=== PATIENT | male | born 1950 | race Two or more races ===

== ENCOUNTER 2024-12-12 12:11 | Inpatient (IN) | payer OTHER ==
[2024-12-12] VITALS (8 sets, daily range): BP systolic 89–104; BP diastolic 55–63; PULSE 83–96; RESP 12–18; TEMP 98.1–100; O2SAT 96–97
[~2024-12-12] VITALS: Ht 170.2 cm; Wt 97.2 kg
--- NOTE | 2024-12-12 13:01 | ED.PDOC ---
History of Present Illness HPI Comments 74-year-old male came to the ER complaining of having darker stools this morning. He was recently discharged from hospital in [place] for similar symptom. Along with dark colored stool she has been having nausea but no vomiting. His blood pressure on arrival 89/54. History of gastric ulcer with hypotension for which she does take lisinopril aspirin. Denies any other symptoms Chief Complaint: Low Blood Pressure Time Seen by MD: 12:18 Reviewed Notes: Nurses Notes, Medications, Allergies Allergies: Coded Allergies: NO KNOWN ALLERGIES (Unverified , 12/12/24) Information Source: Patient, Emergency Med Personnel Mode of Arrival: EMS Severity: Moderate Timing: Days Duration: Since onset Past Medical History PAST MEDICAL HISTORY: Denies Surgical History: Denies all surgeries Social History Smoker: Non-Smoker Alcohol: Denies ETOH Use Drugs: Denies Drug Use Constitutional: denies: chills, diaphoresis, fatigue, fever, malaise, sweats, weakness, others EENTM: denies: blurred vision, double vision, ear bleeding, ear discharge, ear drainage, ear pain, ear ringing, eye pain, eye redness, hearing loss, mouth pain, mouth swelling, nasal discharge, nose bleeding, nose congestion, nose maliha n, photophobia, tearing, throat pain, throat swelling, voice changes, others Respiratory: denies: cough, hemoptysis, orthopnea, SOB at rest, shortness of breath, SOB with excertion, stridor, wheezing, others Cardiovascular: denies: chest pain, dizzy spells, diaphoresis, Dyspnea on exertion, edema, irregular heart beat, left arm pain, lightheadedness, palpitations, PND, syncope, others Gastrointestinal: reports: melena; denies: abdomen distended, abdominal pain, blood streaked bowels, constipated, diarrhea, dysphagia, difficulty swallowing, hematemesis, nausea, poor appetite, poor fluid intake, rectal bleeding, rectal pain, vomiting, others Genitourinary: denies: burning, dysuria, flank pain, frequency, hematuria, incontinence, penile discharge, penile sore, pain, testicle pain, testicle swelling, urgency, others Neurological: denies: dizziness, fainting, headache, left sided numbness, left sided weakness, numbness, paresthesia, pre-existing deficit, right sided numbness, right sided weakness, seizure, speech problems, tingling, tremors, weakness, others Musculoskeletal: denies: back pain, gout, joint pain, joint swelling, muscle pain, muscle stiffness, neck pain, others Integumetry: denies: bruises, change in color, change in hair/nails, dryness, laceration, lesions, lumps, rash, wounds, others Allergic/Immunocompromised: denies: Difficulty Healing, Frequent Infections, Hives, Itching, others Hematologic/Lymphatic: denies: anemia, blood clots, easy bleeding, easy bruising, swollen glands, others Endocrine: denies: excessive hunger, excessive sweating, excessive thirst, excessive urination, flushing, intolerance to cold, intolerance to heat, unexplained weight gain, unexplained weight loss, others Psychiatric: denies: anxiety, bipolar disorder, depression, hopeless, panic disorder, schizophrenia, sleepless, suicidal, others Physical Exam General Appearance: Moderate Distress HEENT: Normal ENT Inspection, Pharynx Normal, TMs Normal Neck: Full Range of Motion, Non-Tender, Normal, Normal Inspection Respiratory: Chest Non-Tender, Lungs Clear, No Accessory Muscle Use, No Respiratory Distress, Normal Breath Sounds Cardiovascular: No Edema, No JVD, No Murmur, No Gallop, Normal Peripheral Pulses, Regular Rate/Rhythm Breast Exam: Deferred Gastrointestinal: No Organomegaly, Non Tender, No Pulsatile Mass, Normal Bowel Sounds, Soft Genitalia: Deferred Pelvic: Deferred Rectal: Deferred Extremities: No calf tenderness, Normal inspection, Normal range of motion Musculoskeletal : Apperance: Normal Neurologic: Alert Cerebellar Function: NOT DONE Reflexes: NOT DONE Skin: Pallor Peripheral Pulses: 3+ Radial (R), 3+ Radial (L) Lymphatic: No Adenopathy Was a procedure done? Was a procedure done?: No EKG EKG : Cardiac Rhythm: NSR Differential Dx Considerations may include: GI bleed Electrolyte imbalance X-Ray, Labs, Meds, VS Vital Signs Date Time Temp Pulse Resp B/P (MAP) Pulse Ox O2 Delivery O2 Flow Rate FiO2 12/12/24 12:55 96 12 96 Room Air* 0 21 12/12/24 12:54 98.3 96 12 98/58 (71) 96 98.3 12/12/24 12:30 98.4 87 18 89/59 (69) 97 98.4 12/12/24 12:24 100 Lab Test 12/12/24 14:55 12/12/24 13:24 Range/Units Urine Color Pending Urine Clarity Pending Urine pH Pending Urine Specific [place] Pending Urine Protein Pending Urine Ketones Pending Urine Blood Pending Urine Nitrite Pending Urine Bilirubin Pending Urine Urobilinogen Pending Urine Leukocyte Esterase Pending Urine RBC Pending Urine Microscopic WBC Pending Urine Squamous Epithelial Cells Pending Urine Bacteria Pending Urine Glucose Pending White Blood Count 12.9 H 4.4-10.8 10^3/uL Red Blood Count 2.02 L 4.5-5.90 10^6/uL Hemoglobin 6.3 *L 13.5-17.5 g/dL Hematocrit 18.2 L 41.0-53.0 % Mean Corpuscular Volume 90.3 80.0-100.0 fL Mean Corpuscular Hemoglobin 31.4 28.0-32.0 pg Mean Corpuscular Hemoglobin Concent 34.8 32.0-36.0 g/dL Red Cell Distribution Width 14.5 H 11.8-14.3 % Platelet Count 146 140-450 10^3/uL Mean Platelet Volume 9.3 6.9-10.8 fL Neutrophils (%) (Auto) 81.0 H 37.0-80.0 % Lymphocytes (%) (Auto) 13.7 10.0-50.0 % Monocytes (%) (Auto) 5.0 0.0-12.0 % Eosinophils (%) (Auto) 0.1 0.0-7.0 % Basophils (%) (Auto) 0.2 0.0-2.0 % Neutrophils # (Auto) 10.5 H 1.6-8.6 10 ^3/uL Lymphocytes # (Auto) 1.8 0.4-5.4 10 ^3/uL Monocytes # (Auto) 0.6 0-1.3 10 ^3/uL Eosinophils # (Auto) 0 0-0.8 10 ^3/uL Basophils # (Auto) 0 0-0.2 10 ^3/uL Nucleated Red Blood Cells 0.8 % Prothrombin Time 13.1 H 9.3-11.8 sec Prothrombin Time INR 1.26 H 0.9-1.15 Activated Partial Thromboplast Time 23.6 L 24.5-34.5 SEC Sodium Level 137 136-145 mmol/L Potassium Level 4.0 3.5-5.1 mmol/L Chloride Level 107 98-107 mmol/L Carbon Dioxide Level 20 20-31 mmol/L Anion Gap 10 5-15 Blood Urea Nitrogen 29 H 9-23 mg/dL Creatinine 0.91 0.700-1.30 mg/dL Glomerular Filtration Rate Calc 88 >90 mL/min BUN/Creatinine Ratio 31.9 H 10.0-20.0 Serum Glucose 203 H 74-106 mg/dL Calcium Level 7.6 L 8.7-10.4 mg/dL Troponin I High Sensitivity 4 </=54 ng/L Current Medications Medications (Trade) Dose Ordered Sig/Sharri Route Start Time Stop Time Status Last Admin Sodium Chloride 1,000 ml @ 1,000 mls/hr Q1H ONCE IV 12/12/24 13:00 12/12/24 13:59 DC 12/12/24 13:07 Sodium Chloride 1,000 ml @ 150 mls/hr Q6H40M ONCE IV 12/12/24 13:00 12/12/24 19:39 12/12/24 14:00 Patient alert. Complaining of GI bleed. Blood pressure on the low side. Establish intravenous access. Was given fluids. Recently discharged from [facility] for a GI workup. Continues to have melena stools. He is slightly pale. Abdomen is soft. Reviewed his history. GI consultation. Explained to the patient. Continue monitoring. [place] [id number] Ph: [phone] DIAGNOSTIC IMAGING Diagnostic Imaging Report : [id number] Signed PATIENT: LASHAWN ZULUAGA ACCT: [id number] UNIT: [id number] : 1950 LOC: ER ROOM / BED: / AGE / SEX: 74 / M ADM STATUS: REG ER SERVICE 1255 ORDERING PHYSICIAN: DEEP CHANDLER MD PROCEDURE(s): CXRP - CHEST PORTABLE REASON: sob ORDER NUMBER(s): [id number], ACCESSION NUMBER(s): [id number] EXAM: XY CHEST PORTABLE TECHNIQUE: Single frontal chest radiograph CLINICAL HISTORY: sob COMPARISON: None Findings/Impression: Frontal chest radiograph demonstrates no acute osseous or superficial soft tissue abnormalities. The trachea is midline. The cardiac silhouette and mediastinum are within normal limits. No pneumothorax, pleural effusions, or consolidations. ATED BY: JANNET CHRISTINE DO DICTATED DATE/TIME: 12/12/241341 SIGNED BY: JANNET CHRISTINE DO SIGNED DATE/TIME: 12/12/241341 CC: [place] [id number] Ph: [phone] DIAGNOSTIC IMAGING Diagnostic Imaging Report : [id number] Signed PATIENT: LASHAWN ZULUAGA ACCT: [id number] UNIT: [id number] : 1950 LOC: ER ROOM / BED: / AGE / SEX: 74 / M ADM STATUS: REG ER SERVICE 54 ORDERING PHYSICIAN: DEEP CHANDLER MD PROCEDURE(s): ABPL - CT AB PEL WO CON-NO ORAL OR IV REASON: gible ORDER NUMBER(s): [id number], ACCESSION NUMBER(s): [id number] Exam: CT CT AB PEL WO CON-NO ORAL OR IV History: gibleed Comparison Study: None TECHNIQUE: Multidetector CT of the abdomen and pelvis was performed from lung bases to pubic symphysis. Imaging was performed without IV contrast. Axial, coronal, and sagittal multiplanar reformats were obtained from the axial data set by the technologist. RADIATION DOSE: DLP 811.56 mGy.cm; CTDI vol 14.17 mGy. Findings: Lungs: The lung bases are clear. Heart: No cardiomegaly or pericardial effusion. Liver: Unremarkable. Gallbladder: Unremarkable. Spleen: Unremarkable Pancreas: Unremarkable Adrenals: Unremarkable Kidneys: Unremarkable GI tract: Unremarkable. No definite gastrointestinal hemorrhage. : 1.5 cm hyperdense nodule in the base of the prostate. Vasculature: Unremarkable Lymphadenopathy: Absent Peritoneum: No ascites Musculoskeletal: Unremarkable Soft tissues: Unremarkable Impression: 1. No acute abdominopelvic abnormalities. 2. No definite gastrointestinal hemorrhage. Consider further evaluation with a nuclear medicine GI bleeding scan as clinically indicated. 3. 1.5 cm hypodense nodule in the base of the prostate, nonspecific. Consider ultrasound for further evaluation as indicated. ATED BY: JANNET CHRISTINE DO DICTATED DATE/TIME: 12/12/24 1354 SIGNED BY: JANNET CHRISTINE DO SIGNED DATE/TIME: 12/12/24 1354 CC: Time of 1ST Reevaluation: 12:59 Reevaluation 1ST: Unchanged Patient Education/Counseling: Diagnosis, Treatment, Prognosis Family Education/Counseling: No Family Present Departure 1 Departure Time of Disposition: 13:00 Impression: Primary Impression: GI bleed Qualified Codes: K92.2 - Gastrointestinal hemorrhage, unspecified Additional Impression: Severe anemia Disposition: ADMITTED INPATIENT Admit to: Med Surg Condition: Guarded Critical Care Note Critical Care Time?: Yes (90 min-critical care time only) Critical care comment: Hypotensive continue fluids Stability Stability form required: No Heart Score Heart Score: Heart Score Response (Comments) Value History Slightly Suspicious 0 EKG Normal 0 Age >65 2 Risk Factors >3 or Hx ASHD 2 Troponin Normal limit 0 Total 4 I personally scribed for DEEP CHANDLER MD ([email or web address]) on 12/12/24 at 15:17. Electronically submitted by Jason Berrios ([email or web address]). DEEP CHANDLER MD December 12, 2024 13:01
[2024-12-12] MEDS: SODIUM CHLORIDE 0.9% 1,000 ML IV ONE ×2 (13:07→14:00)
[2024-12-12 13:43] LABS: Basophils # (auto) 0 10 ^3/uL (0-0.2); Basophils % (auto) 0.2 % (0.0-2.0); Chloride 107 mmol/L (98-107); Eosinophils # (auto) 0 10 ^3/uL (0-0.8); Eosinophils % (auto) 0.1 % (0.0-7.0); Hematocrit 18.2 % (41.0-53.0); Lymphocytes # (auto) 1.8 10 ^3/uL (0.4-5.4); Lymphocytes % (auto) 13.7 % (10.0-50.0); Mean Corpuscular Hemoglobin 31.4 pg (28.0-32.0); Mean Corpuscular Hgb Conc. 34.8 g/dL (32.0-36.0); Mean Corpuscular Volume 90.3 fL (80.0-100.0); Monocytes # (auto) 0.6 10 ^3/uL (0-1.3); Neutrophils # (auto) 10.5 10 ^3/uL (1.6-8.6); Nucleated Red Blood Cells % 0.8 %; Platelet Count (auto) 146 10^3/uL (140-450); Red Blood Cells 2.02 10^6/uL (4.5-5.90); Red Cell Distribution Width 14.5 % (11.8-14.3); Sodium 137 mmol/L (136-145); White Blood Cell 12.9 10^3/uL (4.4-10.8)
[2024-12-12 13:44] LABS: Anion Gap 10 (5-15); Carbon Dioxide 20 mmol/L (20-31); Hemoglobin 6.3 g/dL (13.5-17.5)
--- NOTE | 2024-12-12 13:44 | DVH ---
EXAM: XY CHEST PORTABLE TECHNIQUE: Single frontal chest radiograph CLINICAL HISTORY: sob COMPARISON: None Findings/Impression: Frontal chest radiograph demonstrates no acute osseous or superficial soft tissue abnormalities. The trachea is midline. The cardiac silhouette and mediastinum are within normal limits. No pneumothorax, pleural effusions, or consolidations.
[2024-12-12 13:47] LABS: Calcium 7.6 mg/dL (8.7-10.4)
[2024-12-12 13:50] LABS: BUN/Creatinine Ratio 31.9 (10.0-20.0)
[2024-12-12 13:53] LABS: INR 1.26 (0.9-1.15); Partial Thromboplastin Time 23.6 SEC (24.5-34.5); Prothrombin Time 13.1 sec (9.3-11.8)
[2024-12-12 13:54] LABS: Blood Urea Nitrogen 29 mg/dL (9-23); Glucose 203 mg/dL (74-106)
--- NOTE | 2024-12-12 13:56 | DVH ---
Exam: CT CT AB PEL WO CON-NO ORAL OR IV History: gibleed Comparison Study: None TECHNIQUE: Multidetector CT of the abdomen and pelvis was performed from lung bases to pubic symphysi s. Imaging was performed without IV contrast. Axial, coronal, and sagittal multiplanar reformats were obtained from the axial data set by the technologist. RADIATION DOSE: DLP 811.56 mGy.cm; CTDI vol 14.17 mGy. Findings: Lungs: The lung bases are clear. Heart: No cardiomegaly or pericardial effusion. Liver: Unremarkable. Gallbladder: Unremarkable. Spleen: Unremarkable Pancreas: Unremarkable Adrenals: Unremarkable Kidneys: Unremarkable GI tract: Unremarkable. No definite gastrointestinal hemorrhage. : 1.5 cm hyperdense nodule in the base of the prostate. Vasculature: Unremarkable Lymphadenopathy: Absent Peritoneum: No ascites Musculoskeletal: Unremarkable Soft tissues: Unremarkable Impression: 1. No acute abdominopelvic abnormalities. 2. No definite gastrointestinal hemorrhage. Consider further evaluation with a nuclear medicine GI bl eeding scan as clinically indicated. 3. 1.5 cm hypodense nodule in the base of the prostate, nonspecific. Consider ultrasound for further evaluation as indicated.
--- NOTE | 2024-12-12 14:20 | ECG ---
[facility] Test Date: 2024-12-12 Test Time: 12:24:05 Pat Name: LASHAWN ZULUAGA Department: ED Room: 0281 Gender: M [employer] Dis[employer]: ER : 1950 Requested By: DEEP CHANDLER Order Number: [id number] Reading MD: Kyaw Davis Measurements Intervals [place] Rate: 100 P: 49 MA: 189 QRS: -66 QRSD: 92 T: 36 QT: 364 QTc: 470 Interpretive Statements Sinus tachycardia Left anterior fascicular block Consider anterior infarct Electronically Signed On 12-15-2024 12:43:31 PDT by Kyaw Davis Please click the below link to view image of tracing.
[2024-12-12 15:07] LABS: Urine Bacteria None Seen /hpf (None Seen)
[2024-12-12 15:25] LABS: Urine Blood Negative /uL (Negative); Urine Clarity Clear (Clear); Urine Color Light-Yellow (Yellow); Urine Mucus FEW (None Seen); Urine Protein, UAD Negative (Negative); Urine Specific Gravity 1.021 (1.001-1.035); Urine Squamous Epithelial Cell None Seen /hpf (<5); Urine Urobilinogen Normal (Negative); Urine WBC < 1 /HPF (0-3)
--- NOTE | 2024-12-12 16:32 | DVHHP2 ---
History of Present Illness Reason for Visit: Dark stools History of Present Illness This 74 year-old mainly Icelandic-speaking male patient presents to the emergency department with a chief complaint of dark stools. The patient reports symptoms started with dark-colored stools, nausea, vomiting, hematemesis, and melena last week for which prompted the patient to go to [facility]. The patient states that he was admitted overnight and was transfused with 1 unit PRBC and status post endoscopy for which they found gastric ulcer. He was discharged yesterday with a hemoglobin of greater than seven and was advised to follow-up with PCP. The patient reports continued to have dark stools and weakness for which prompted him to visit the emergency department again. In the emergency department, the patient is found to have severe anemia with a hemoglobin of 6.3 and hypotension. The patient denies fever, syncope, chest pain, chest palpitations, shortness of breath, or abdominal pain. Past Medical History As stated in HPI Past Surgical History Status post endoscopy Family History Reviewed, non-contributory to the management of this case. Past Social History The patient lives at home, denies smoking, alcohol or illicit drugs abuse. Review of Systems Constitutional: Yes: Weakness, Malaise; No: Fever, Chills, Sweats, Other Eyes: No: Pain, Vision change, Conjunctivae inflammation, Eyelid inflammation, Other, Redness ENT: No: Ear pain, Ear discharge, Nose pain, Nose discharge, Nose congestion, Mouth pain, Mouth swelling, Throat pain, Throat swelling, Other Respiratory: No: Cough, Dry, Shortness of breath, SOB with excertion, Wheezing, Hemoptysis, Pleuritic Pain, Sputum, Wheezing, Other Cardiovascular: No: Chest Pain, Palpitations, Orthopnea, Paroxysmal Noc. Dyspnea, Edema, Lt Headedness, Other Gastrointestinal: Nausea, Vomiting, Melena, Other (Blood in stools); No: Abdominal Pain, Diarrhea, Constipation, Hematochezia Genitourinary: No Dysuria, No Frequency, No Incontinence, No Hematuria, No R etention, No Other Musculoskeletal: No: other, neck pain, shoulder pain, arm pain, back pain, hand pain, leg pain, foot pain Skin: No: Rash, Lesions, Jaundice, Bruising, Other Neurological: No: Weakness, Numbness, Incoordination, Change in speech, Confusion, Seizures, Other Allergies: Coded Allergies: NO KNOWN ALLERGIES (Unverified , 12/12/24) Exam Vital Signs Vital Signs Date Time Temp Pulse Resp B/P (MAP) Pulse Ox O2 Delivery O2 Flow Rate FiO2 12/12/24 16:00 87 13 126/48 (74) 95 12/12/24 12:55 Room Air* 0 21 12/12/24 12:54 98.3 98.3 General Appearance: Alert, Oriented X3, Cooperative, mild distress HEENT: Atraumatic, PERRLA, Mucous membr. moist/pink Respiratory: Clear to auscultation, Normal air movement Cardiovascular: Regular rate, Normal S1, Normal S2 Abdominal: Normal bowel sounds, Soft, No tenderness Extremities: No clubbing, No cyanosis, No edema Skin: No rashes, No breakdown Neuro: Normal speech, Normal tone Labs/Xrays Labs Test 12/12/24 14:55 12/12/24 13:24 Range/Units Urine Color Light-yellow Yellow Urine Clarity Clear Clear Urine pH 5.0 5.0-9.0 Urine Specific [place] 1.021 1.001-1.035 Urine Protein Negative Negative Urine Ketones Trace Negative Urine Blood Negative Negative /uL Urine Nitrite Negative Negative Urine Bilirubin Negative Negative Urine Urobilinogen Normal Negative mg/dL Urine Leukocyte Esterase Negative Negative /uL Urine RBC 1 0 - 3 /hpf Urine Microscopic WBC < 1 0-3 /HPF Urine Squamous Epithelial Cells None seen <5 /hpf Urine Bacteria None seen None Seen /hpf Urine Mucus Few None Seen Urine Glucose Trace Normal mg/dL White Blood Count 12.9 H 4.4-10.8 10^3/uL Red Blood Count 2.02 L 4.5-5.90 10^6/uL Hemoglobin 6.3 *L 13.5-17.5 g/dL Hematocrit 18.2 L 41.0-53.0 % Mean Corpuscular Volume 90.3 80.0-100.0 fL Mean Corpuscular Hemoglobin 31.4 28.0-32.0 pg Mean Corpuscular Hemoglobin Concent 34.8 32.0-36.0 g/dL Red Cell Distribution Width 14.5 H 11.8-14.3 % Platelet Count 146 140-450 10^3/uL Mean Platelet Volume 9.3 6.9-10.8 fL Neutrophils (%) (Auto) 81.0 H 37.0-80.0 % Lymphocytes (%) (Auto) 13.7 10.0-50.0 % Monocytes (%) (Auto) 5.0 0.0-12.0 % Eosinophils (%) (Auto) 0.1 0.0-7.0 % Basophils (%) (Auto) 0.2 0.0-2.0 % Neutrophils # (Auto) 10.5 H 1.6-8.6 10 ^3/uL Lymphocytes # (Auto) 1.8 0.4-5.4 10 ^3/uL Monocytes # (Auto) 0.6 0-1.3 10 ^3/uL Eosinophils # (Auto) 0 0-0.8 10 ^3/uL Basophils # (Auto) 0 0-0.2 10 ^3/uL Nucleated Red Blood Cells 0.8 % Prothrombin Time 13.1 H 9.3-11.8 sec Prothrombin Time INR 1.26 H 0.9-1.15 Activated Partial Thromboplast Time 23.6 L 24.5-34.5 SEC Sodium Level 137 136-145 mmol/L Potassium Level 4.0 3.5-5.1 mmol/L Chloride Level 107 98-107 mmol/L Carbon Dioxide Level 20 20-31 mmol/L Anion Gap 10 5-15 Blood Urea Nitrogen 29 H 9-23 mg/dL Creatinine 0.91 0.700-1.30 mg/dL Glomerular Filtration Rate Calc 88 >90 mL/min BUN/Creatinine Ratio 31.9 H 10.0-20.0 Serum Glucose 203 H 74-106 mg/dL Calcium Level 7.6 L 8.7-10.4 mg/dL Troponin I High Sensitivity 4 </=54 ng/L PROCEDURE(s): ABPL - CT AB PEL WO CON-NO ORAL OR IV REASON: gibleed ORDER NUMBER(s): [id number], ACCESSION NUMBER(s): [id number] Exam: CT CT AB PEL WO CON-NO ORAL OR IV History: gibleed Comparison Study: None TECHNIQUE: Multidetector CT of the abdomen and pelvis was performed from lung bases to pubic symphysis. Imaging was performed without IV contrast. Axial, coronal, and sagittal multiplanar reformats were obtained from the axial data set by the technologist. RADIATION DOSE: DLP 811.56 mGy.cm; CTDI vol 14.17 mGy. Findings: Lungs: The lung bases are clear. Heart: No cardiomegaly or pericardial effusion. Liver: Unremarkable. Gallbladder: Unremarkable. Spleen: Unremarkable Pancreas: Unremarkable Adrenals: Unremarkable Kidneys: Unremarkable GI tract: Unremarkable. No definite gastrointestinal hemorrhage. : 1.5 cm hyperdense nodule in the base of the prostate. Vasculature: Unremarkable Lymphadenopathy: Absent Peritoneum: No ascites Musculoskeletal: Unremarkable Soft tissues: Unremarkable Impression: 1. No acute abdominopelvic abnormalities. 2. No definite gastrointestinal hemorrhage. Consider further evaluation with a nuclear medicine GI bleeding scan as clinically indicated. 3. 1.5 cm hypodense nodule in the base of the prostate, nonspecific. Consider ultrasound for further evaluation as indicated. Assessment/Plan Assessment/Plan # Severe anemia to Rule out GI bleed # hx of gastric ulcer s/p endoscopy # hx of GI bleed s/p blood transfusion # leukocytosis Admit to medical unit 2 units PRBC to be transfused Monitor H&H q.6 hours transfuse as needed GI consult Protonix b.i.d. Carafate Monitor for bleeding FOBT Iron panel Empiric antibiotic Blood culture # hypertension, now hypotension Monitor Soft IV fluid # prostate nodule 1.5cm, ?incidental findings psa consider Ultrasound of the prostate and urology consults # prediabetes # hyperglycemia Check A1c DVT prophylaxis with SCD Medical plan discussed with patient and daughter at bedside Plan discussed with: Patient, Daughter My Orders Orders - DELLA SUGGS AGRICULTURAL EXTENSION EDUCATOR Procedure Category Date Status Time Pulse Ox Cont Per Day RT 12/12/24 Verified 16:23 Vital Signs DAVID 12/12/24 Verified 16:23 Administer Blood DAVID 12/12/24 Verified Products 16:23 Iron Panel LAB 12/12/24 Verified 16:23 Reticulocyte Count LAB 12/12/24 Verified 16:23 Ferritin LAB 12/12/24 Verified 16:23 Lactate Dehydrogenase LAB 12/12/24 Verified 16:23 Vitamin B12 LAB 12/12/24 Verified 16:23 Folate (Folic Acid) LAB 12/12/24 Verified 16:23 Hemoglobin A1c LAB 12/12/24 Verified 16:23 Pantoprazole PHA 12/12/24 Verified (Protonix) 22:00 Pantoprazole PHA 12/12/24 Verified (Protonix) 16:30 Stool Occult Blood LAB 12/12/24 Verified 16:23 Sequential DAVID 12/12/24 Verified Compression Device 16:23 Blood Culture ZHAO 5/11/25 Verified 16:23 Urinalysis LAB 12/12/24 Verified 16:23 Ceftriaxone Ivpb PHA 12/13/24 Verified Rocephin 09:00 Metronidazole Ivpb PHA 12/12/24 Verified Flagyl 22:00 Metronidazole Ivpb PHA 12/12/24 Verified Flagyl 16:30 Sucralfate Susp PHA 12/12/24 Verified (Carafate Susp) 17:00 Hemoglobin & LAB 12/13/24 Verified Hematocrit 00:00 Hemoglobin & LAB 12/13/24 Verified Hematocrit 06:00 Hemoglobin & LAB 12/13/24 Verified Hematocrit 12:00 Hemoglobin & LAB 12/13/24 Verified Hematocrit 18:00 Date of Service: December 12, 2024 Billing Provider: DELLA SUGGS Common Visit Codes: 49529-[id number] INP/OBS CARE (HIGH) Consultation Codes: [id number] CONSULT <45MIN DELLA SUGGS December 12, 2024 16:32
[2024-12-12] MEDS ORDERED: ONDANSETRON HCL 4 MG/2 ML VIAL IV PRN (16:45)
[2024-12-12] MEDS: SODIUM CHLORIDE 0.9% 1,000 ML IV SCH (17:05)
[2024-12-12 17:13] LABS: % Iron Saturation 39.7 % (20-55)
[2024-12-12] MEDS: metroNIDAZOLE 500MG/100ML 100 ML IV ONE (17:30)
[2024-12-12 17:36] LABS: Ferritin 159.6 ng/mL (22-322)
[2024-12-12] MEDS: PANTOPRAZOLE 40 MG/10 ML VIAL INJ IV ONE (18:22)
[2024-12-12] MEDS: SUCRALFATE 1 GM/10 ML ORAL SUSP PO SCH (18:22)
[2024-12-12] MEDS ORDERED: LISI30TA8 PO (21:21)
[2024-12-12] MEDS ORDERED: PANT40T PO (21:21)
[2024-12-12] MEDS: metroNIDAZOLE 500MG/100ML 100 ML IV SCH (22:33)
[2024-12-12] MEDS: PANTOPRAZOLE 40 MG/10 ML VIAL INJ IV SCH (22:33)
[2024-12-13] VITALS (9 sets, daily range): BP systolic 105–123; BP diastolic 57–68; PULSE 65–82; RESP 17–18; TEMP 97.2–99.7; O2SAT 93–97
[2024-12-13 00:35] LABS: Hematocrit 23.2 % (41.0-53.0); Hemoglobin 8.3 g/dL (13.5-17.5)
[2024-12-13 07:06] LABS: Basophils # (auto) 0 10 ^3/uL (0-0.2); Eosinophils # (auto) 0.1 10 ^3/uL (0-0.8); Hemoglobin 8.2 g/dL (13.5-17.5)
[2024-12-13 07:13] LABS: Alanine Aminotransferase 20 U/L (7-40); Anion Gap 7 (5-15); Aspartate Aminotransferase 17 U/L (13-40); BUN/Creatinine Ratio 21.6 (10.0-20.0); Basophils % (auto) 0.4 % (0.0-2.0); Blood Urea Nitrogen 22 mg/dL (9-23); Carbon Dioxide 24 mmol/L (20-31); Eosinophils % (auto) 0.7 % (0.0-7.0); Hematocrit 22.6 % (41.0-53.0); Lymphocytes # (auto) 2.4 10 ^3/uL (0.4-5.4); Lymphocytes % (auto) 23.8 % (10.0-50.0); Mean Corpuscular Hemoglobin 32.7 pg (28.0-32.0); Mean Corpuscular Hgb Conc. 36.4 g/dL (32.0-36.0); Monocytes # (auto) 0.7 10 ^3/uL (0-1.3); Monocytes % (auto) 6.8 % (0.0-12.0); Neutrophils # (auto) 6.8 10 ^3/uL (1.6-8.6); Neutrophils % (auto) 68.3 % (37.0-80.0); Platelet Count (auto) 107 10^3/uL (140-450); Potassium 4.1 mmol/L (3.5-5.1); Red Blood Cells 2.51 10^6/uL (4.5-5.90); Red Cell Distribution Width 14.5 % (11.8-14.3); Sodium 140 mmol/L (136-145)
[2024-12-13 07:15] LABS: Albumin 2.9 g/dL (3.2-4.8); Alkaline Phosphatase 34 U/L (46-116); Bilirubin, Total 1.8 mg/dL (0.2-1.0); Calcium 8.4 mg/dL (8.7-10.4); Chloride 109 mmol/L (98-107); Glucose 131 mg/dL (74-106); Total Protein 4.3 g/dL (5.7-8.2)
[2024-12-13] MEDS: cefTRIAXone 1GM/50ML D5W 50 ML IV SCH (09:50)
[2024-12-13 11:05] LABS: Folate (Folic Acid) 12.98 ng/mL (>5.38)
[2024-12-13 11:06] LABS: Hemoglobin 8.4 g/dL (13.5-17.5)
[2024-12-13 11:08] LABS: Hematocrit 23.3 % (41.0-53.0)
--- NOTE | 2024-12-13 13:03 | DVHINCON2 ---
GI Consult Consult Note GI consult note Date of Consultation: 12/13/2024 Chief Complaint: GI bleed Referring Physician: Dr. Morrow H&P: 74-year-old male presented to ER with black stool Patient had similar episode last week, admitted to [facility], status post 1 unit PRBC transfusion, status post EGD diagnosed with PUD per patient, after being discharged return to hospital with melena again. Patient admits to history of GERD symptoms No abdominal pain. No nausea or vomiting. No red blood in stool. Denies hematemesis. Denies alcohol use. No NSAIDs. Admits to weight loss of 17 lb in six months after being diagnosed as prediabetic. Status post colonoscopy 5-6 years ago WNL per patient. No blood thinners. Patient admits to having abdominal surgery for stomach ulcers 40 years ago Past Medical History: Denies Past Surgical History: Abdominal surgery for stomach ulcers 40 years ago Social History: NO smoking, drinking ETOH and use of illegal drugs. Family History: Noncontributory Review of Systems: Constitutional: no fever, chill, weight loss HEENT: no eye pain, no hearing loss, no oral lesion, no scleral icterus Heart: no chest pain, no chest pressure Lung: no cough, no dyspnea with exertion Abdomen: see HPI Physical exam: General: NAD, AAOX3 Chest: lung velasquez clear to auscultation Heart: RRR, no murmur Abdomen: non-distended, no tenderness to palpation, +BS Labs:Labs Test 12/12/24 14:55 12/12/24 13:24 Range/Units Urine Color Light-yellow Yellow Urine Clarity Clear Clear Urine pH 5.0 5.0-9.0 Urine Specific [place] 1.021 1.001-1.035 Urine Protein Negative Negative Urine Ketones Trace Negative Urine Blood Negative Negative /uL Urine Nitrite Negative Negative Urine Bilirubin Negative Negative Urine Urobilinogen Normal Negative mg/dL Urine Leukocyte Esterase Negative Negative /uL Urine RBC 1 0 - 3 /hpf Urine Microscopic WBC < 1 0-3 /HPF Urine Squamous Epithelial Cells None seen <5 /hpf Urine Bacteria None seen None Seen /hpf Urine Mucus Few None Seen Urine Glucose Trace Normal mg/dL White Blood Count 12.9 H 4.4-10.8 10^3/uL Red Blood Count 2.02 L 4.5-5.90 10^6/uL Hemoglobin 6.3 *L 13.5-17.5 g/dL Hematocrit 18.2 L 41.0-53.0 % Mean Corpuscular Volume 90.3 80.0-100.0 fL Mean Corpuscular Hemoglobin 31.4 28.0-32.0 pg Mean Corpuscular Hemoglobin Concent 34.8 32.0-36.0 g/dL Red Cell Distribution Width 14.5 H 11.8-14.3 % Platelet Count 146 140-450 10^3/uL Mean Platelet Volume 9.3 6.9-10.8 fL Neutrophils (%) (Auto) 81.0 H 37.0-80.0 % Lymphocytes (%) (Auto) 13.7 10.0-50.0 % Monocytes (%) (Auto) 5.0 0.0-12.0 % Eosinophils (%) (Auto) 0.1 0.0-7.0 % Basophils (%) (Auto) 0.2 0.0-2.0 % Neutrophils # (Auto) 10.5 H 1.6-8.6 10 ^3/uL Lymphocytes # (Auto) 1.8 0.4-5.4 10 ^3/uL Monocytes # (Auto) 0.6 0-1.3 10 ^3/uL Eosinophils # (Auto) 0 0-0.8 10 ^3/uL Basophils # (Auto) 0 0-0.2 10 ^3/uL Nucleated Red Blood Cells 0.8 % Prothrombin Time 13.1 H 9.3-11.8 sec Prothrombin Time INR 1.26 H 0.9-1.15 Activated Partial Thromboplast Time 23.6 L 24.5-34.5 SEC Sodium Level 137 136-145 mmol/L Potassium Level 4.0 3.5-5.1 mmol/L Chloride Level 107 98-107 mmol/L Carbon Dioxide Level 20 20-31 mmol/L Anion Gap 10 5-15 Blood Urea Nitrogen 29 H 9-23 mg/dL Creatinine 0.91 0.700-1.30 mg/dL Glomerular Filtration Rate Calc 88 >90 mL/min BUN/Creatinine Ratio 31.9 H 10.0-20.0 Serum Glucose 203 H 74-106 mg/dL Calcium Level 7.6 L 8.7-10.4 mg/dL Troponin I High Sensitivity 4 </=54 ng/L Imaging: CT abdomen pelvis Impression: 1. No acute abdominopelvic abnormalities. 2. No definite gastrointestinal hemorrhage. Consider further evaluation with a nuclear medicine GI bleeding scan as clinically indicated. 3. 1.5 cm hypodense nodule in the base of the prostate, nonspecific. Consider ultrasound for further evaluation as indicated. Assessment: GI bleed History PUD History of GERD Anemia Plan: Discussed with Dr. Rodriguez Obtain records of EGD from [facility] Protonix and Carafate Monitor labs in a.m. Clear liquid diet We will continue to follow patient Discussed plan with patient family at bedside and RN Thank you for this consult Date of Service: December 13, 2024 Billing Provider: HUMA MCKENZIE Common Visit Codes: CONSULT ONLY Consultation Codes: [id number] CONSULT <60MIN HUMA MCKENZIE December 13, 2024 13:03
[2024-12-13 16:42] LABS: Hematocrit 23.1 % (41.0-53.0); Hemoglobin 8.2 g/dL (13.5-17.5)
--- NOTE | 2024-12-13 18:59 | DVHPN2 ---
Subjective had some melena this morning Changes from previous H/P or p: No Changes Eyes: No Pain, No Vision change, No Conjunctivae inflammation, No Eyelid inflammation, No Other, No Redness ENT: No Ear pain, No Ear discharge, No Nose pain, No Nose discharge, No Nose congestion, No Mouth pain, No Mouth swelling, No Throat pain, No Throat swelling, No Other Cardiovascular: No Chest Pain, No Palpitations, No Orthopnea, No Paroxysmal Noc. Dyspnea, No Edema, No Lt Headedness, No Other Respiratory: No Cough, No Dry, No Shortness of breath, No SOB with excertion, No Wheezing, No Hemoptysis, No Pleuritic Pain, No Sputum, No Other Gastrointestinal: Nausea, Vomiting; No Abdominal Pain, No Diarrhea, No Constipation; Melena; No Hematochezia; Other (Blood in stools) Genitourinary: No Dysuria, No Frequency, No Incontinence, No Hematuria, No Retention, No Other Musculoskeletal: No other, No neck pain, No shoulder pain, No arm pain, No back pain, No hand pain, No leg pain, No foot pain Skin: No Rash, No Lesions, No Jaundice, No Bruising, No Other Objective Vitals Vital Signs Date Time Temp Pulse Resp B/P (MAP) Pulse Ox O2 Delivery O2 Flow Rate FiO2 12/13/24 17:00 98.1 80 17 116/68 (84) 94 98.1 12/13/24 08:00 Room Air* 0 21 Intake/Output Intake and Output 12/13/24 07:00 Intake Total 2390 ml Output Total 500 ml Balance 1890 ml Intake Oral 0 ml IV Total 1460 ml Blood Product 930 ml Output Urine Total 500 ml General Appearance: Alert, Oriented X3, Cooperative Lungs: Clear to auscultation Cardiovascular: Regular rate, Normal S1, Normal S2 Abdomen: Normal bowel sounds Medications Current Medications Medications Dose Ordered Sig/Sharri Route Start Time Stop Time Status Last Admin Dose Admin Pantoprazole Sodium 40 mg BID IV 12/12/24 22:00 12/13/24 09:50 40 MG Ceftriaxone Sodium 50 ml @ 100 mls/hr DAILY@09 IV 12/13/24 09:00 12/13/24 09:50 100 MLS/HR Metronidazole 100 ml @ 100 mls/hr Q8HR IV 12/12/24 22:00 12/13/24 14:21 100 MLS/HR Sucralfate 1 gm QID@0600,1130,1700,2200 PO 12/12/24 17:00 12/13/24 17:26 1 GM Sodium Chloride 1,000 ml @ 60 mls/hr [id number] IV 12/12/24 16:45 12/13/24 14:29 60 MLS/HR Ondansetron HCl 4 mg Q4HP PRN IV 12/12/24 16:45 Laboratory Results Laboratory Tests 12/13/24 05:47 12/13/24 16:38 Chemistry Test 12/13/24 05:47 Albumin 2.9 g/dL (3.2-4.8) L Calcium Level 8.4 mg/dL (8.7-10.4) L Total Protein 4.3 g/dL (5.7-8.2) L LFT Test 12/13/24 05:47 Alanine Aminotransferase (ALT) 20 U/L (7-40) Alkaline Phosphatase 34 U/L (46-116) L Aspartate Amino Transferase (AST) 17 U/L (13-40) Total Bilirubin 1.8 mg/dL (0.2-1.0) H Urinalysis Test 12/12/24 14:55 Urine Color Light-yellow (Yellow) Urine Clarity Clear (Clear) Urine pH 5.0 (5.0-9.0) Urine Specific [place] 1.021 (1.001-1.035) Urine Protein Negative (Negative) Urine Ketones Trace (Negative) Urine Blood Negative /uL (Negative) Urine Nitrite Negative (Negative) Urine Bilirubin Negative (Negative) Urine Urobilinogen Normal mg/dL (Negative) Urine Leukocyte Esterase Negative /uL (Negative) Urine RBC 1 /hpf (0 - 3) Urine Microscopic WBC < 1 /HPF (0-3) Urine Squamous Epithelial Cells None seen /hpf (<5) Urine Bacteria None seen /hpf (None Seen) Urine Mucus Few (None Seen) Urine Glucose Trace mg/dL (Normal) Microbiology Microbiology Date/Time Source Procedure Growth Status 12/13/24 06:35 Nose MRSA Screen - Final Complete 12/12/24 17:02 Blood Blood Culture - Preliminary NO GROWTH AFTER 24 HOURS OF INCUBATION. Resulted Assessment/Plan Assessment/Plan # Severe anemia to Rule out GI bleed # hx of gastric ulcer s/p endoscopy # hx of GI bleed s/p blood transfusion # leukocytosis Admit to medical unit 2 units PRBC transfused continue carafate PPI BID GI consult and requested records from [facility] monitor CBC # hypertension, now hypotension Monitor Soft IV fluid # prostate nodule 1.5cm, ?incidental findings psa consider Ultrasound of the prostate and urology consults # prediabetes # hyperglycemia Check A1c Plan discussed with: Patient Date of Service: December 13, 2024 Billing Provider: CAROLIN HERNADEZ MD Common Visit Codes: [id number] INP/OBS CARE(HIGH) CRAOLIN HERNADEZ MD December 13, 2024 18:59
[2024-12-13 22:33] LABS: Hematocrit 22.9 % (41.0-53.0)
[2024-12-14 01:00] VITALS: BP 100/53; PULSE 63; RESP 18; TEMP 98.5; O2SAT 100
[2024-12-14 05:00] VITALS: BP 107/58; PULSE 63; RESP 18; TEMP 98.1; O2SAT 94
[2024-12-14 06:07] LABS: PSA Free 1.45 ng/mL; Prostate Specific Antigen 4.6 ng/mL (0.0-4.0)
[2024-12-14 08:00] VITALS: PULSE 72; RESP 20; O2SAT 95
[2024-12-14 09:00] VITALS: BP 109/77; PULSE 72; RESP 16; TEMP 98; O2SAT 95
[2024-12-14 13:00] VITALS: BP 121/62; PULSE 69; RESP 16; TEMP 97.6; O2SAT 97
[2024-12-14] MEDS ORDERED: SUCR1SUS26 PO (16:09)
--- NOTE | 2024-12-14 16:44 | DVHDS2 ---
Discharge Summary Date of Admission December 12, 2024 at 16:32 Date of Discharge: December 14, 2024 Labs/Diagnostic Data: Laboratory Results Test 12/13/24 22:05 12/13/24 12:33 12/13/24 05:47 12/12/24 14:55 Hemoglobin 8.0 g/dL (13.5-17.5) Hematocrit 22.9 % (41.0-53.0) Stool Occult Blood Positive (Negative) Stool Occult Blood Sample #3 (Negative) White Blood Count 10.0 10^3/uL (4.4-10.8) Red Blood Count 2.51 10^6/uL (4.5-5.90) Mean Corpuscular Volume 90.0 fL (80.0-100.0) Mean Corpuscular Hemoglobin 32.7 pg (28.0-32.0) Mean Corpuscular Hemoglobin Concent 36.4 g/dL (32.0-36.0) Red Cell Distribution Width 14.5 % (11.8-14.3) Platelet Count 107 10^3/uL (140-450) Mean Platelet Volume 9.8 fL (6.9-10.8) Neutrophils (%) (Auto) 68.3 % (37.0-80.0) Lymphocytes (%) (Auto) 23.8 % (10.0-50.0) Monocytes (%) (Auto) 6.8 % (0.0-12.0) Eosinophils (%) (Auto) 0.7 % (0.0-7.0) Basophils (%) (Auto) 0.4 % (0.0-2.0) Neutrophils # (Auto) 6.8 10 ^3/uL (1.6-8.6) Lymphocytes # (Auto) 2.4 10 ^3/uL (0.4-5.4) Monocytes # (Auto) 0.7 10 ^3/uL (0-1.3) Eosinophils # (Auto) 0.1 10 ^3/uL (0-0.8) Basophils # (Auto) 0 10 ^3/uL (0-0.2) Nucleated Red Blood Cells 1.0 % Sodium Level 140 mmol/L (136-145) Potassium Level 4.1 mmol/L (3.5-5.1) Chloride Level 109 mmol/L (98-107) Carbon Dioxide Level 24 mmol/L (20-31) Anion Gap 7 (5-15) Blood Urea Nitrogen 22 mg/dL (9-23) Creatinine 1.02 mg/dL (0.700-1.30) Glomerular Filtration Rate Calc 77 mL/min (>90) BUN/Creatinine Ratio 21.6 (10.0-20.0) Serum Glucose 131 mg/dL (74-106) Calcium Level 8.4 mg/dL (8.7-10.4) Total Bilirubin 1.8 mg/dL (0.2-1.0) Aspartate Amino Transferase (AST) 17 U/L (13-40) Alanine Aminotransferase (ALT) 20 U/L (7-40) Alkaline Phosphatase 34 U/L (46-116) Total Protein 4.3 g/dL (5.7-8.2) Albumin 2.9 g/dL (3.2-4.8) Urine Color Light-yellow (Yellow) Urine Clarity Clear (Clear) Urine pH 5.0 (5.0-9.0) Urine Specific [place] 1.021 (1.001-1.035) Urine Protein Negative (Negative) Urine Ketones Trace (Negative) Urine Blood Negative /uL (Negative) Urine Nitrite Negative (Negative) Urine Bilirubin Negative (Negative) Urine Urobilinogen Normal mg/dL (Negative) Urine Leukocyte Esterase Negative /uL (Negative) Urine RBC 1 /hpf (0 - 3) Urine Microscopic WBC < 1 /HPF (0-3) Urine Squamous Epithelial Cells None seen /hpf (<5) Urine Bacteria None seen /hpf (None Seen) Urine Mucus Few (None Seen) Urine Glucose Trace mg/dL (Normal) Test 12/12/24 13:24 Reticulocyte Count (auto) 7.05 % (0.5-1.5) Prothrombin Time 13.1 sec (9.3-11.8) Prothrombin Time INR 1.26 (0.9-1.15) Activated Partial Thromboplast Time 23.6 SEC (24.5-34.5) Hemoglobin A1c < 3.8 % A1C (<5.7) Iron Level 96 ug/dL (65-175) Total Iron Binding Capacity 242 ug/dL (250-425) Percent Iron Saturation 39.7 % (20-55) Ferritin 159.6 ng/mL (22-322) Lactate Dehydrogenase 112 U/L (120-246) Troponin I High Sensitivity 4 ng/L (</=54) Free Prostate Specific Antigen 1.45 ng/mL (N/A) Percent Free Prostate Specific Ag 31.5 % (.) Prostate Specific Antigen Total 4.6 ng/mL (0.0-4.0) Vitamin B12 Level 350 pg/mL (211-911) Folic Acid 12.98 ng/mL (>5.38) Other Laboratory Tests 12/13/24 22:05 12/13/24 05:47 Brief Hx & Hospital Course: This 74 year-old mainly Kiswahili-speaking male patient presents to the emergency department with a chief complaint of dark stools. The patient reports symptoms started with dark-colored stools, nausea, vomiting, hematemesis, and melena last week for which prompted the patient to go to [facility]. The patient states that he was admitted overnight and was transfused with 1 unit PRBC and status post endoscopy for which they found gastric ulcer. He was discharged yesterday with a hemoglobin of greater than seven and was advised to follow-up with PCP. The patient reports continued to have dark stools and weakness for which prompted him to visit the emergency department again. In the emergency department, the patient is found to have severe anemia with a hemoglobin of 6.3 and hypotension. The patient denies fever, syncope, chest pain, chest palpitations, shortness of breath, or abdominal pain. Hb stable during hospital stay Condition at Discharge: Good Final Diagnosis/Problems List Acute gi bleeding Discharge Disposition: Home Discharge Instruct/Medications Diet: Regular Activity: No Restrictions, As Tolerated Follow Up/Referral: PCP and GI in 7 days Medications: sucralfate and PPI Discharge Statement: "Patient was advised to return to the ER or call 911 if any headaches, dizziness, shortness of breath, chest pain, abdominal pain, bleeding, fevers, or worsening of medical condition. Patient was counseled about treatment plan, medications, possible side effects, patient�verbalized understanding. All questions were answered to the best of my ability. This discharge took greater then 30 minutes in planning, reviewing documentation, counseling the patient, and discussing with other team members." ASSESSMENT ASSESSMENT Assessment Acute gi bleeding Date of Service: December 14, 2024 Billing Provider: CAROLIN HERNADEZ MD Common Visit Codes: [id number] DISCH DAY >30min CAROLIN HERNADEZ MD December 14, 2024 16:43
[2024-12-14 16:57] VITALS: BP 123/77; PULSE 93; RESP 16; TEMP 98.3; O2SAT 95
--- NOTE | 2024-12-14 20:39 | DVHPN2 ---
Progress Note - Dictate Date Seen: December 14, 2024 (Late entry patient seen at 3:00 p.m.) Medical Necessity Reason Pt with a Central, PICC or Fol: No Subjective No new complaints No further episodes of bleeding Hemoglobin is stable at 8.0 His EGD report was reviewed from [facility] Patient had nonbleeding pyloric duodenal channel ulcers hiatal hernia and esophagitis Biopsy results were not available vital signs Vital Sign Date Time Temp Pulse Resp B/P (MAP) Pulse Ox O2 Delivery O2 Flow Rate FiO2 12/14/24 16:57 98.3 93 16 123/77 (92) 95 98.3 12/14/24 08:00 Room Air* 0 21 Total Intake and Output 12/13/24 12/13/24 12/14/24 15:00 23:00 07:00 Intake Total 50 ml 0 ml 250 ml Output Total 500 ml Balance 50 ml 0 ml -250 ml objective General Appearance: Alert, Oriented X3, Cooperative Lungs: Clear to auscultation Cardiovascular: Regular rate, Normal S1, Normal S2 Abdomen: Normal bowel sounds laboratory and microbiology Laboratory Tests 12/13/24 22:05 12/13/24 05:47 Test 12/13/24 05:47 Range/Units Serum Glucose 131 H 74-106 mg/dL Problems(with codes): (1) Severe anemia (2) GI bleed (3) Hiatal hernia with GERD and esophagitis (4) Gastritis (5) Duodenal ulcer Prognosis Plan Continue supportive care Advance diet as tolerated Patient was taking Naprosyn prior to this episodes of bleeding He was encouraged to discontinue NSAIDs and naproxen He will take Tylenol as needed as needed for pain Protonix 40 mg p.o. twice a day Carafate 1 g p.o. twice a day before meals My contact information was given to follow up with me as an outpatient Plan discussed with: Patient, Daughter, Other (Nurse Devorah) CC Plasma Assessment Blood Product Administration S: [id number] [place] REID MD December 14, 2024 20:39
== END 2024-12-14 17:35 | disposition home or self-care (01) | DRG 811 ==
LOC: ER 12:11 → EDBD 12:11 → OVERFLOW 16:32 → WEST WING 21:06
PROVIDERS: ADMIT Hospitalist; ATTEND Hospitalist
PROC: 30233N1 Transfusion of Nonautologous Red Blood Cells into Peripheral Vein, Percutaneous Approach (ICD-10-PCS; principal; 2024-12-12)
DX: D50.0 Iron deficiency anemia secondary to blood loss (chronic) (principal); K26.4 Chronic or unspecified duodenal ulcer with hemorrhage; R73.9 Hyperglycemia, unspecified; D72.829 Elevated white blood cell count, unspecified; I10 Essential (primary) hypertension; K21.9 Gastro-esophageal reflux disease without esophagitis; N40.2 Nodular prostate without lower urinary tract symptoms; R73.03 Prediabetes; Z87.11 Personal history of peptic ulcer disease; Z79.899 Other long term (current) drug therapy
CPT/HCPCS: 36415; 71045; 74176; 80048; 80053; 81001; 82270; 82607; 82728; 82746; 83036; 83540; 83550; 83615; 84154; 84484; 85014; 85018; 85025; 85045; 85610; 85730; 86850; 86900; 86901; 86920; 87040; 87081; 93005; 96360; 96361; 99291; G0378; J2470; J3490